=== PATIENT | male | born 1995 | race Caucasian/White ===

== ENCOUNTER 2017-11-06 01:16 | Emergency (ER) | payer MEDICAID ==
[2017-11-06 01:21] VITALS: BP 111/89
[2017-11-06] MEDS ORDERED: LIDOCAINE 2% VISCOUS 15 ML UDCUP ONE (01:26)
--- NOTE | 2017-11-06 01:30 | EDPHY ---
H & P Stated Complaint: Left upper dental pain x 2 months worse over the last week Time Seen by Provider: 11/06/17 01:22 HPI/ROS: Chief Complaint: Dental pain HPI: 21-year-old male has been having left upper molar dental pain for the last 2 months. Been significantly worse over the last few days. He is not able to chew on that side. He does have a local dentist but has not been able to get in to see him this week. No fevers or chills. Does not hurt over close his jaw. He has been taking Tylenol with no relief. He has not been taking any ibuprofen. ROS: 10 systems were reviewed and were negative except those elements noted in the HPI. PMH: Denies Social History: No smoking Family History: non-contributory Physical Exam: Gen: Awake, Alert, No Distress Mouth: Patient has tenderness to percuss his 2nd molar. There is mild erythema of his no fluctuance or pointing. No trismus. Neck: Supple no, no lymphadenopathy - Personal History Current Tetanus Diphtheria and Acellular Pertussis (TDAP): Yes - Medical/Surgical History Hx Asthma: No Hx Chronic Respiratory Disease: No Hx Diabetes: No Hx Cardiac Disease: No Hx Renal Disease: No Hx Cirrhosis: No Hx Alcoholism: No Hx HIV/AIDS: No Hx Splenectomy or Spleen Trauma: No - Social History Smoking Status: Current every day smoker Constitutional: Initial Vital Signs Temperature (C) 36.6 C 11/06/17 01:19 Heart Rate 55 L 11/06/17 01:19 Respiratory Rate 18 11/06/17 01:19 Blood Pressure 111/89 H 11/06/17 01:19 O2 Sat (%) 98 11/06/17 01:19 O2 Delivery Mode Room Air Allergies/Adverse Reactions: No Known Allergies Allergy (Unverified 11/06/17 01:19) Home Medications: Medication Instructions Recorded Penicillin V Potassium 250 mg PO QID 7 Days tablet 11/06/17 Medical Decision Making Procedures: Procedure: Regional anesthesia. A dental block was performed for dental pain. The block was performed with Marcaine with epinephrine. The patient experienced complete pain relief. The procedure was performed by myself. ED Course/Re-evaluation: 21-year-old male with dental pain. He he is improved after dental block. I have also given him penicillin and ibuprofen. He has a dentist in town. He will follow up with him tomorrow. Departure - Departure Disposition: Home, Routine, Self-Care Clinical Impression: Pain, dental Condition: Good Instructions: Dental Abscess (ED) Additional Instructions: Follow up with dentist later today. Please take her full course of antibiotics. Alternate acetaminophen (1000 mg) with ibuprofen (400 mg) every 4 hours as needed for pain. Referrals: NONE *PRIMARY CARE P,. [Primary Care Provider] - As per Instructions Prescriptions: Penicillin V Potassium 250 mg PO QID 7 Days tablet
[2017-11-06] MEDS ORDERED: PENICILLIN VK 250MG PREPACK#6 BTL TAKEHOME ONE (01:33)
[2017-11-06] MEDS ORDERED: IBUPROFEN 600 MG TAB PO ONE (01:34)
== END 2017-11-06 02:06 | disposition home or self-care (01) ==
PROC: 3E0X3BZ Introduction of Anesthetic Agent into Cranial Nerves, Percutaneous Approach (ICD-10-PCS; principal; 2017-11-06)
DX: K08.89 Other specified disorders of teeth and supporting structures (principal); F17.200 Nicotine dependence, unspecified, uncomplicated